=== PATIENT | male | born 1980 | race Caucasian/White ===

== ENCOUNTER 2016-06-18 11:57 | Emergency (ER) | payer BC ==
[~2016-06-18] VITALS: Ht 193 cm; Wt 63.5 kg
[~2016-06-18 11:57] MED LIST: MOTI25CH PO; ONDA1TAB16 PO
[2016-06-18 12:15] VITALS: BP 134/86; PULSE 60; RESP 16; TEMP 98.8; O2SAT 98
[2016-06-18] MEDS ORDERED: SODIUM CHLOR 0.9% 1000 ML INJ 1,000 ML IV SCH (12:59)
[2016-06-18] MEDS ORDERED: ONDANSETRON HCL 4 MG/2 ML VIAL IVP ONE (13:00)
[2016-06-18] MEDS ORDERED: PANTOPRAZOLE SODIUM 40 MG VIAL IVP ONE (13:00)
[2016-06-18] MEDS ORDERED: SODIUM CHLORIDE 0.9% FLUSH 5 ML FLUSH IVF PRN (13:00)
[2016-06-18] MEDS ORDERED: PROT40TA PO (13:10)
--- NOTE | 2016-06-18 13:13 | PD ---
HPI Chief Complaint: GI Complaint Time Seen by Provider: 12:51 Travel History International Travel<30 days: No Contact w/Intl Traveler<30days: No Traveled to known affect area: No History of Present Illness HPI Patient is a 36-year-old male who presents to emergency room with complaints of abdominal pain. Patient reports that 3 months ago, he had been waking up in the middle night with abdominal pain with nausea vomiting. Patient reports that when he had his symptoms, he had to pace around his house for an hour until his symptoms resolve. Patient reports that symptoms were completely resolved by the morning, patient would feel fine all day, reports that he is only symptomatic after he has fallen asleep. Patient reports that he has been symptomatic for the past 3 days, reports that he wakes up in the middle of the night with abdominal pain with nausea vomiting. Patient reports that he feels fine throughout the daytime but is worse at night. Patient concerned as he reports strong family history of cancers, reports that his mother recently passed from cancer. Patient at this time with mild left upper abdominal pain, denies any nausea vomiting or diarrhea at this time. 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) Immunizations Current: Yes Social History Alcohol Use: No Tobacco Use: No (1/2 PPD) Substance Use: Yes (MARIJUANA OCCASIONALLY) Allergies-Medications (Allergen,Severity, Reaction): Coded Allergies: No Known Allergies (Verified , 06/18/16) Reported Meds & Prescriptions Reported Meds & Active Scripts Active Protonix (Pantoprazole Sodium) 40 Mg Tab 40 Mg PO DAILY Review of Systems General / Constitutional: No: Fever Eyes: No: Visual changes HENT: No: Headaches Cardiovascular: No: Chest Pain or Discomfort Respiratory: No: Shortness of Breath Gastrointestinal: Positive: Nausea, Vomiting, Abdominal Pain Genitourinary: No: Dysuria Musculoskeletal: No: Pain Skin: No Rash Neurologic: No: Weakness Psychiatric: No: Depression Endocrine: No: Polydipsia Hematologic/Lymphatic: No: Easy Bruising Physical Exam Narrative GENERAL: No acute distress, nontoxic SKIN: Warm and dry. HEAD: Atraumatic. Normocephalic. EYES: Pupils equal and round. No scleral icterus. No injection or drainage. ENT: No nasal bleeding or discharge. Mucous membranes pink and moist. NECK: Trachea midline. No JVD. CARDIOVASCULAR: Regular rate and rhythm. No murmur appreciated. RESPIRATORY: No accessory muscle use. Clear to auscultation. Breath sounds equal bilaterally. GASTROINTESTINAL: Abdomen soft, patient with mild tenderness to the left upper abdomen with no rebound or guarding on exam MUSCULOSKELETAL: No obvious deformities. No clubbing. No cyanosis. No edema. NEUROLOGICAL: Awake and alert. No obvious cranial nerve deficits. Motor grossly within normal limits. Normal speech. PSYCHIATRIC: Appropriate mood and affect; insight and judgment normal. Data Data Last Documented VS Vital Signs Date Time Temp Pulse Resp B/P Pulse Ox O2 Delivery O2 Flow Rate FiO2 06/18/16 12:15 98.8 60 16 134/86 98 Orders Complete Blood Count With Diff (06/18/16 12:59) Comprehensive Metabolic Panel (06/18/16 12:59) Lipase (06/18/16 12:59) Urinalysis - C+S If Indicated (06/18/16 12:59) Ct Abd/Pel W Iv Contrast(Rout) (06/18/16 12:59) Iv Access Insert/Monitor (06/18/16 12:59) Ondansetron Inj (Zofran Inj) (06/18/16 13:00) Pantoprazole Inj (Protonix Inj) (06/18/16 13:00) Sodium Chlor 0.9% 1000 Ml Inj (Ns 1000 M (06/18/16 12:59) Sodium Chloride 0.9% Flush (Ns Flush) (06/18/16 13:00) Iohexol 350 Inj (Omnipaque 350 Inj) (06/18/16 14:12) Labs Laboratory Tests Test 06/18/16 06/18/16 13:20 14:20 White Blood Count 9.1 TH/MM3 Red Blood Count 5.01 MIL/MM3 Hemoglobin 15.3 GM/DL Hematocrit 46.4 % Mean Corpuscular Volume 92.7 FL Mean Corpuscular Hemoglobin 30.6 PG Mean Corpuscular Hemoglobin 33.0 % Concent Red Cell Distribution Width 12.5 % Platelet Count 188 TH/MM3 Mean Platelet Volume 8.8 FL Neutrophils (%) (Auto) 74.3 % Lymphocytes (%) (Auto) 19.8 % Monocytes (%) (Auto) 5.0 % Eosinophils (%) (Auto) 0.4 % Basophils (%) (Auto) 0.5 % Neutrophils # (Auto) 6.8 TH/MM3 Lymphocytes # (Auto) 1.8 TH/MM3 Monocytes # (Auto) 0.5 TH/MM3 Eosinophils # (Auto) 0.0 TH/MM3 Basophils # (Auto) 0.0 TH/MM3 CBC Comment DIFF FINAL Differential Comment Sodium Level 142 MEQ/L Potassium Level 3.5 MEQ/L Chloride Level 105 MEQ/L Carbon Dioxide Level 25.8 MEQ/L Anion Gap 11 MEQ/L Blood Urea Nitrogen 14 MG/DL Creatinine 0.97 MG/DL Estimat Glomerular Filtration 87 ML/MIN Rate Random Glucose 87 MG/DL Calcium Level 9.4 MG/DL Total Bilirubin 1.0 MG/DL Aspartate Amino Transf 11 U/L (AST/SGOT) Alanine Aminotransferase 19 U/L (ALT/SGPT) Alkaline Phosphatase 65 U/L Total Protein 7.4 GM/DL Albumin 4.4 GM/DL Lipase 598 U/L Urine pH 5.5 Urine Protein NEG mg/dL Urine Glucose (UA) NEG mg/dL Urine Ketones 15 mg/dL Urine Occult Blood NEG Urine Nitrite NEG Urine Bilirubin NEG Urine Leukocyte Esterase NEG MDM Medical Decision Making Medical Screen Exam Complete: Yes Emergency Medical Condition: Yes Interpretation(s) Vital Signs Date Time Temp Pulse Resp B/P Pulse Ox O2 Delivery O2 Flow Rate FiO2 06/18/16 12:15 98.8 60 16 134/86 98 Differential Diagnosis Gastric ulcer, duodenal ulcer, gastritis, GERD Narrative Course Patient is a 36-year-old male who presents to emergency room with complaints of abdominal pain for the past 3 months. Patient reports that he wakes up in the middle night with nausea vomiting and abdominal pain. Patient reports that he was seen in the emergency room was given a prescription for meclizine as well as Zofran, reports that this has not helped with his symptoms. Patient reports that he has not followed by pouring crane operator yet as he just got health insurance. Patient here for evaluation of his abdominal pain. On evaluation, patient has mild pain to his left upper abdomen. Discussed with patient need to follow-up with pouring crane operator as he will need to have an EGD to evaluate for possible gastric versus duodenal ulcer. Given his strong family history of cancer, discussed need for possible colonoscopy as well. Patient understands this, and will call for earliest follow-up appointment. In the meantime, we'll obtain lab work as well as CAT scan the abdomen pelvis to rule out any obvious abdominal pathology which could be causing his abdominal pain. Laboratory Tests Test 06/18/16 06/18/16 13:20 14:20 White Blood Count 9.1 TH/MM3 (4.0-11.0) Red Blood Count 5.01 MIL/MM3 (4.50-5.90) Hemoglobin 15.3 GM/DL (13.0-17.0) Hematocrit 46.4 % (39.0-51.0) Mean Corpuscular Volume 92.7 FL (80.0-100.0) Mean Corpuscular Hemoglobin 30.6 PG (27.0-34.0) Mean Corpuscular Hemoglobin 33.0 % Concent (32.0-36.0) Red Cell Distribution Width 12.5 % (11.6-17.2) Platelet Count 188 TH/MM3 (150-450) Mean Platelet Volume 8.8 FL (7.0-11.0) Neutrophils (%) (Auto) 74.3 % (16.0-70.0) Lymphocytes (%) (Auto) 19.8 % (9.0-44.0) Monocytes (%) (Auto) 5.0 % (0.0-8.0) Eosinophils (%) (Auto) 0.4 % (0.0-4.0) Basophils (%) (Auto) 0.5 % (0.0-2.0) Neutrophils # (Auto) 6.8 TH/MM3 (1.8-7.7) Lymphocytes # (Auto) 1.8 TH/MM3 (1.0-4.8) Monocytes # (Auto) 0.5 TH/MM3 (0-0.9) Eosinophils # (Auto) 0.0 TH/MM3 (0-0.4) Basophils # (Auto) 0.0 TH/MM3 (0-0.2) CBC Comment DIFF FINAL Differential Comment Sodium Level 142 MEQ/L (136-145) Potassium Level 3.5 MEQ/L (3.5-5.1) Chloride Level 105 MEQ/L (98-107) Carbon Dioxide Level 25.8 MEQ/L (21.0-32.0) Anion Gap 11 MEQ/L (5-15) Blood Urea Nitrogen 14 MG/DL (7-18) Creatinine 0.97 MG/DL (0.60-1.30) Estimat Glomerular Filtration 87 ML/MIN (>89) Rate Random Glucose 87 MG/DL (74-106) Calcium Level 9.4 MG/DL (8.5-10.1) Total Bilirubin 1.0 MG/DL (0.2-1.0) Aspartate Amino Transf 11 U/L (15-37) (AST/SGOT) Alanine Aminotransferase 19 U/L (12-78) (ALT/SGPT) Alkaline Phosphatase 65 U/L (45-117) Total Protein 7.4 GM/DL (6.4-8.2) Albumin 4.4 GM/DL (3.4-5.0) Lipase 598 U/L (73-393) Urine pH 5.5 (5.0-8.5) Urine Protein NEG mg/dL (NEG-TRACE) Urine Glucose (UA) NEG mg/dL (NEG) Urine Ketones 15 mg/dL (NEG) Urine Occult Blood NEG (NEG) Urine Nitrite NEG (NEG) Urine Bilirubin NEG (NEG) Urine Leukocyte Esterase NEG (NEG) Last Impressions Abdomen/Pelvis CT 06/18/16 1259 Signed Impressions: Service Date/Time: Saturday, June 18, 2016 14:05 - CONCLUSION: No acute abnormality demonstrated. Azam Carrera MD Reviewed all labs and all studies with patient detail. Patient with an elevated lipase of 598. CAT scan of the abdomen and pelvis shows a normal pancreas. Lab work reviewed. Patient was given a copy of his CAT scan report at discharge. Patient stands need to follow-up with his primary care doctor as well as pouring crane operator as studies today cannot rule out cancer. Signs and symptoms of acute abdomen reviewed were patient in detail. Diagnosis Primary Impression: Abdominal pain Qualified Code: R10.10 - Pain of upper abdomen Additional Impression: Pancreatitis Qualified Code: K85.80 - Other acute pancreatitis without infection or necrosis Referrals: Windy Beach MD Patient Instructions: General Instructions Additional Instructions: Please provide patient with a copy of his lab work and CAT scan report at discharge Please call pouring crane operator first thing in the morning for earliest follow- up appointment as you will need further testing including but not limited to an EGD as well as colonoscopy Our test today cannot rule out cancer, you will need to follow up with primary care doctor and pouring crane operator for further evaluation of your symptoms Please follow-up with your primary care doctor Return to emergency room as needed Scripts Pantoprazole (Protonix)40 Mg Tab40 Mg PO DAILY #30 TAB Ref 0 Prov:Yvette An DO 06/18/16 Disposition: 01 DISCHARGE HOME Yvette An DO Jun 18, 2016 13:13
[2016-06-18 13:25] VITALS: BP 121/72; PULSE 61; PULSE 71; RESP 16; O2SAT 98
[2016-06-18 13:28] LABS: AUTOMATED NEUTROPHIL # 6.8 TH/MM3 (1.8-7.7); BASOPHIL % 0.5 % (0.0-2.0); EOSINOPHIL % 0.4 % (0.0-4.0); HEMATOCRIT 46.4 % (39.0-51.0); HEMO FLAGS DIFF FINAL; LYMPH % 19.8 % (9.0-44.0); LYMPHOCYTE # 1.8 TH/MM3 (1.0-4.8); MEAN CELL VOLUME 92.7 FL (80.0-100.0); MEAN CORPUSCULAR HEMOGLOBIN 30.6 PG (27.0-34.0); NEUT % 74.3 % (16.0-70.0); PLATELET COUNT 188 TH/MM3 (150-450); RED BLOOD COUNT 5.01 MIL/MM3 (4.50-5.90); RED CELL DISTRIBUTION WIDTH 12.5 % (11.6-17.2); WHITE BLOOD COUNT 9.1 TH/MM3 (4.0-11.0)
[2016-06-18 13:36] LABS: CHLORIDE 105 MEQ/L (98-107); POTASSIUM 3.5 MEQ/L (3.5-5.1); SODIUM (NA) 142 MEQ/L (136-145)
[2016-06-18 13:40] LABS: ANION GAP 11 MEQ/L (5-15); BICARBONATE 25.8 MEQ/L (21.0-32.0)
[2016-06-18 13:41] LABS: BLOOD UREA NITROGEN 14 MG/DL (7-18)
[2016-06-18 13:43] LABS: ALT (GPT) 19 U/L (12-78); AST (GOT) 11 U/L (15-37); GLOMERULAR FILTRATION RATE 87 ML/MIN (>89)
[2016-06-18 13:46] LABS: ALKALINE PHOSPHATASE 65 U/L (45-117)
[2016-06-18] MEDS ORDERED: IOHEXOL 350 MG/ML 10 ML VIAL (for RAD DIAG) IV ONE (14:12)
[2016-06-18 14:25] VITALS: BP 119/68; PULSE 60; RESP 16; O2SAT 99
--- NOTE | 2016-06-18 14:26 | RADHPO ---
EXAM DATE/TIME: 06/18/2016 14:05 [facility] COMPARISON: No previous studies available for comparison. INDICATIONS : Mid abdominal pain with nausea and vomiting for three days. IV CONTRAST: 95 cc Omnipaque 350 (iohexol) IV ORAL CONTRAST: No oral contrast ingested. RADIATION DOSE: 4.70 CTDIvol (mGy) MEDICAL HISTORY : None SURGICAL HISTORY : Orthopedic surgery. ENCOUNTER: Initial ACUITY: 3 days PAIN SCALE: 3/10 LOCATION: abdomen TECHNIQUE: Volumetric scanning of the abdomen and pelvis was performed. Using automated exposure control and ad justment of the mA and/or kV according to patient size, radiation dose was kept as low as reasonably achievable to obtain optimal diagnostic quality images. FINDINGS: LOWER LUNGS: The visualized lower lungs are clear. LIVER: Homogeneous density without lesion. There is no dilation of the biliary tree. No calcified gallston es. SPLEEN: Normal size without lesion. PANCREAS: Within normal limits. KIDNEYS: Normal in size and shape. There is no mass, stone or hydronephrosis. ADRENAL GLANDS: Within normal limits. VASCULAR: There is no aortic aneurysm. BOWEL/MESENTERY: The stomach, small bowel, and colon demonstrate no acute abnormality. There is no free intraperitone al air or fluid. The appendix is well-visualized, normal. ABDOMINAL WALL: Within normal limits. RETROPERITONEUM: There is no lymphadenopathy. BLADDER: No wall thickening or mass. REPRODUCTIVE: Within normal limits. INGUINAL: There is no lymphadenopathy or hernia. MUSCULOSKELETAL: No evidence of an acute bony abnormality. CONCLUSION: No acute abnormality demonstrated. Azam Carrera MD on June 18, 2016 at 14:23 Board Certified Radiologist. This report was verified electronically.
[2016-06-18 14:28] LABS: BLOOD, URINE NEG (NEG); GLUCOSE,URINE NEG (NEG); KETONE, URINE 15 mg/dL (NEG); NITRITE,URINE NEG (NEG); PH, URINE 5.5 (5.0-8.5)
[2016-06-18 14:40] LABS: METHOD OF COLLECTION CLEAN CATCH; URINE COLOR YELLOW (YELLW/STRAW)
[2016-06-18 14:41] LABS: COMMENT (UR) CULT NOT INDICATED; CULTURE IF INDICATED CULT NOT INDICATED; RBC, URINE 0-3 /hpf (0-3); SQUAMOUS EPITHELIAL CELL URINE 0-5 /hpf (0-5)
[2016-06-18 15:26] VITALS: BP 119/62; PULSE 59; RESP 16; O2SAT 100
== END 2016-06-18 15:34 | disposition home or self-care (01) ==
LOC: PHED 11:57
DX: K85.80 Other acute pancreatitis without necrosis or infection (principal); R10.10 Upper abdominal pain, unspecified; R74.8 Abnormal levels of other serum enzymes; Z87.891 Personal history of nicotine dependence
CPT/HCPCS: 74177; 80053; 81001; 83690; 85025; 96361; 96374; 96375; 99284; C9113; J2405; J7030; Q9967